=== PATIENT | female | born 2000 | race Two or more races ===

== ENCOUNTER → 2021-07-27 | Outpatient (CLI) | payer OTHER ==
--- NOTE | 2021-07-27 14:59 | RAD ---
EXAMINATION: CT HEAD/BRAIN WO CLINICAL HISTORY: HEAD INJURY 2 WEEKS AGO, HEADACHES TECHNIQUE: Serial axial images without IV contrast were obtained from the vertex to the foramen magnu m. CT Dose Reduction Employed: One or more of the following individualized dose reduction techniques wer e utilized for this examination: 1. Automated exposure control 2. Adjustment of the mA and/or kV ac cording to patient size 3. Use of iterative reconstruction technique. COMPARISON: None FINDINGS: Acute Change: No evidence of an acute contusion or other acute parenchymal process. Hemorrhage: No evidence of acute intracranial hemorrhage. Mass Lesion/Mass Effect: No evidence of intracranial mass or extraaxial fluid collection. No signific ant mass effect. Chronic Change: None apparent. Parenchyma: No significant volume loss. Parenchyma otherwise within normal limits for age. Ventricles: Ventricles within normal limits for age. Paranasal Sinuses and Skull Base: Partially visualized small and extensor tendons and cysts in the ri ght maxillary sinus. Visualized skull base and soft tissues unremarkable. IMPRESSION: No evidence of acute intracranial abnormality. Electronically signed by: Vinny Medina DO (07/27/2021 2:56 PM) [facility]
== END ==
LOC: CT 13:52
PROVIDERS: ATTEND Preventive Medicine Occupational Medicine
DX: M54.2 Cervicalgia (principal); J34.1 Cyst and mucocele of nose and nasal sinus
CPT/HCPCS: 70450